=== PATIENT | male | born 1955 | race Caucasian/White ===

== ENCOUNTER 2023-10-17 12:51 | Outpatient (CLI) | payer OTHER, SELFPAY ==
--- NOTE | 2023-10-17 13:00 | MR_ITS ---
[address] [address] Phone:?[phone] Fax:?[phone] Referring Physician Information: Brina Becker [address] [facility] [address] Phone:?[phone] Fax:?[phone] Patient:Salvador Liriano D.O.B:?1955 Sex:?Male Phone:?[phone] [facility] MRN:[id number] Exam Date:?10/17/2023 EXAM: MRI EXAMINATION OF THE RIGHT KNEE CLINICAL INFORMATION: Right knee pain. History of injury. History of surgery. Possible internal derangement. TECHNICAL INFORMATION: Coronal PD and STIR. Axial PD and T2 fat saturation. Sagittal PD and PD fat saturation images acquired. INTERPRETATION: Bones: Moderate subchondral edema signal and more mild subchondral cystic change along the mid to medial surface of the lateral tibial plateau. Subchondral edema signal involves the adjacent femoral condyle. Subchondral edema signal and cystic changes involving the lateral patellofemoral compartment. 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 Osseous cystic changes within the fragment and the adjacent [place] portion of the patella as well as spurring, in keeping with secondary degeneration. There is no evidence of acute fracture. No other abnormal bone marrow edema pattern is identified. Ligaments and tendons: The medial collateral ligament is intact, without acute sprain or tear. The iliotibial band, fibular collateral ligament, biceps femoris tendon and popliteus tendon all are intact. The anterior cruciate ligament is intact without acute sprain or tear. The posterior cruciate ligament is intact. Extensor Mechanism: The patellar and quadriceps tendons are intact. The medial and lateral retinacula are intact. Knee Joint: There is a small knee joint effusion. There is a small popliteal cyst which demonstrates mild to moderate leakage. There is no discrete loose body seen within the joint. Medial Compartment: There is no evidence for discrete medial meniscal tear. No displaced flap fragment or parameniscal cyst. There is no focal chondral defect. No other significant changes of chondromalacia. Lateral Compartment: There is no evidence for discrete lateral meniscal tear. No displaced flap fragment or parameniscal cyst. 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 There is a 2.4 x 0.8 cm segment of grade II and III chondromalacia involving the adjacent portion of the femoral condyle. Patellofemoral articulation: Broad full-thickness and near full-thickness cartilage loss involves the lateral patellar facet. Predominant grade II and III chondromalacia involves the lateral trochlear groove. CONCLUSION: 1. No evidence for a meniscal tear. 2. The cruciate ligaments are intact. No other residua of a ligament injury involving the knee. 3. 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 Adjacent moderate large segment of grade II and III chondromalacia of the femoral condyle. 4. 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 Associated subchondral cystic change. 5. 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 Secondary degeneration is identified at the site of synchondrosis. 6. There is a small knee joint effusion. A small popliteal cyst demonstrates mild to moderate leakage. KES Electronically signed on 10/17/2023 4:16:00 PM by Davidson Sanabria M.D.
== END 2023-10-17 12:52 | disposition home or self-care (01) ==
LOC: MRI 12:52
PROVIDERS: PCP Family Medicine; Visit Provider Physician Assistant Surgical
DX: M25.561 Pain in right knee (principal); M94.261 Chondromalacia, right knee; M22.41 Chondromalacia patellae, right knee; M25.461 Effusion, right knee
CPT/HCPCS: 73721